=== PATIENT | female | born 1960 | race Two or more races ===

== ENCOUNTER 2021-03-24 11:51 | Emergency (ER) | payer OTHER ==
[2021-03-24 12:00] VITALS: BP 135/69
[2021-03-24] MEDS ORDERED: BACITRACIN ZINC OINT 1 PACKET TOP STA (12:02)
[2021-03-24] MEDS ORDERED: BUFFERED LIDOCAINE 10 ML SYRINGE SUBQ STA (12:02)
--- NOTE | 2021-03-24 13:08 | ED Physician Documentation ---
History of Present Illness - Stated complaint Stated Complaint: R FINGER LAC - Chief complaint Chief Complaint: Laceration - History obtained from History obtained from: Patient - Additonal information Additional information: 60-year-old woman, Last Tdap 6 years ago presents with laceration to R 2nd finger while cleaning a knife in the sink today. Denies sensory or motor deficits. Able to flex the finger normally. Review of Systems Skin: reports: Laceration (s) Musculoskeletal: reports: Extremity pain Neurologic: denies: Focal weakness, Numbness PD PAST MEDICAL HISTORY - Allergies Allergies/Adverse Reactions: Allergies Allergy/AdvReac Type Severity Reaction Status Date / Time No Known Drug Allergies Allergy Verified 03/24/21 11:56 PD ED PE NORMAL - Vitals Vital signs reviewed: Yes - General General: Alert and oriented X 3, No acute distress, Well developed/nourished - HEENT HEENT: Atraumatic, PERRL, EOMI - Derm Derm: Normal color, Warm and dry, Other (2.5cm lac to R second finger spanning laterally over DIP joint without tendon or bone involvement) - Extremities Extremities: Other (FROM of the affected finger. normal strength. good cap refill) - Neuro Neuro: Alert and oriented X 3 Results - Vitals Vitals: Vital Signs - 24 hr 03/24/21 11:57 Temperature 36.5 C Heart Rate 78 Respiratory 16 Rate Blood Pressure 135/69 H O2 Saturation 95 Oxygen O2 Source Room air Procedures - Laceration (location) Finger right Length in cm: 2.5 Wound type: Linear Neurovascular status: Sensory intact, Motor intact Tendon involvement: Tendon intact Anesthesia: Lidocaine 1%, With bicarb Wound preparation: Irrigated copiously NS, Wound explored, To the base. No: FB identified Skin layer closure: Nylon, Interrupted, Size #-0 - enter number (4), Sutures - enter # (5) Other: Patient tolerated well, No complications, Neurovascular intact, Dressing applied, Tetanus UTD PD MEDICAL DECISION MAKING - ED course ED course: 60-year-old woman presented with laceration of right second finger. Tetanus up-to-date. Laceration repaired without incident. Discussed signs of infection and reasons for return. Patient will follow-up in 14 days for suture removal. Departure - Departure Disposition: 01 Home, Self Care Clinical Impression: Laceration of finger Condition: Good Instructions: ED Laceration All Comments: You are seen in the emergency department for laceration of the finger. 5 stitches were placed and the need to be removed in 14 days. Please monitor for any signs of infection. Follow-up with your primary doctor. Return the emergency department if you have any other worsening symptoms or other concerns
== END 2021-03-24 13:12 | disposition home or self-care (01) ==
LOC: ED 11:51
DX: S61.210A Laceration without foreign body of right index finger without damage to nail, initial encounter (principal); W26.0XXA Contact with knife, initial encounter; Y93.G1 Activity, food preparation and clean up
CPT/HCPCS: 12001; 99281; 99282; A9270